=== PATIENT | female | born 1945 | race Caucasian/White ===

== ENCOUNTER 2021-11-28 10:33 | Day surgery (SDC) | payer MEDICARE, BC ==
[~2021-11-28 10:33] MED LIST: Polymyxin B/Trimethoprim 10 ML Bottle EYERT SCH; Tetracaine HCl/PF 0.5% 4 ML Bottle EYEBOTH SCH
[2021-11-28] MEDS: Polymyxin B/Trimethoprim 10 ML Bottle EYERT SCH ×4 (11:03→12:52)
[2021-11-28] MEDS: Brimonidine 0.2% Ophth Soln 5 ML Bottle EYERT SCH ×4 (11:07→12:52)
[2021-11-28] MEDS: Phenylephrine 2.5% Ophth Soln 2 ML Bot EYERT SCH ×6 (11:12→12:43)
[2021-11-28] MEDS: Tropicamide 1% Ophth Soln 15 ML Bottle EYERT SCH ×4 (11:16→12:13)
[2021-11-28] MEDS: Tetracaine HCl/PF 0.5% 4 ML Bottle EYEBOTH SCH ×4 (12:18→12:43)
[2021-11-28] MEDS: Lidocaine 1% PF 2 ML SDV INJECT SCH ×2 (12:39→12:43)
[2021-11-28] MEDS: Cefuroxime 10 MG/ML SYRINGE EYERT SCH ×2 (12:43→12:51)
[2021-11-28] MEDS: Pilocarpine 4% Ophth Soln 15 ML Bot EYERT SCH ×2 (12:44→12:52)
== END 2021-11-28 13:02 | disposition home or self-care (01) ==
LOC: JD.SDS 10:33
PROVIDERS: ATTEND Ophthalmology
DX: H25.813 Combined forms of age-related cataract, bilateral (principal); H35.363 Drusen (degenerative) of macula, bilateral; H35.3131 Nonexudative age-related macular degeneration, bilateral, early dry stage; H16.103 Unspecified superficial keratitis, bilateral; H16.223 Keratoconjunctivitis sicca, not specified as Sjogren's, bilateral; H02.834 Dermatochalasis of left upper eyelid; H02.831 Dermatochalasis of right upper eyelid; I10 Essential (primary) hypertension; Z88.0 Allergy status to penicillin; Z88.1 Allergy status to other antibiotic agents; Z79.899 Other long term (current) drug therapy
CPT/HCPCS: 66984; C1780; J0697

== ENCOUNTER → 2021-12-26 | Day surgery (SDC) | payer MEDICARE, BC ==
[~2021-12-26] MED LIST changes: +Cefuroxime 10 MG/ML SYRINGE EYELF SCH; +Lidocaine 1% PF 2 ML SDV INJECT SCH; +Pilocarpine 4% Ophth Soln 15 ML Bot EYELF SCH; -Polymyxin B/Trimethoprim 10 ML Bottle EYERT SCH; -Tetracaine HCl/PF 0.5% 4 ML Bottle EYEBOTH SCH
[2021-12-26] MEDS: Polymyxin B/Trimethoprim 10 ML Bottle EYELF SCH ×3 (13:01→14:26)
[2021-12-26] MEDS: Brimonidine 0.2% Ophth Soln 5 ML Bottle EYELF SCH ×3 (13:05→14:26)
[2021-12-26] MEDS: Phenylephrine 2.5% Ophth Soln 2 ML Bot EYELF SCH ×5 (13:08→14:08)
[2021-12-26] MEDS: Tropicamide 1% Ophth Soln 15 ML Bottle EYELF SCH ×4 (13:14→13:51)
[2021-12-26] MEDS: Tetracaine HCl/PF 0.5% 4 ML Bottle EYEBOTH SCH ×4 (13:55→14:13)
== END ==
LOC: JD.SDS 13:45
PROVIDERS: ATTEND Ophthalmology
DX: H25.812 Combined forms of age-related cataract, left eye (principal); H35.363 Drusen (degenerative) of macula, bilateral; H35.3131 Nonexudative age-related macular degeneration, bilateral, early dry stage; H16.223 Keratoconjunctivitis sicca, not specified as Sjogren's, bilateral; H02.834 Dermatochalasis of left upper eyelid; H02.831 Dermatochalasis of right upper eyelid; I10 Essential (primary) hypertension; Z79.899 Other long term (current) drug therapy; Z88.0 Allergy status to penicillin; Z96.1 Presence of intraocular lens
CPT/HCPCS: 66984; C1780; J0697